=== PATIENT | male | born 1970 | race Caucasian/White ===

== ENCOUNTER 2016-08-05 16:17 | Emergency (ER) | payer MEDICAID ==
[2016-08-05] MEDS ORDERED: ASPIRIN 81 MG TABLET, CHEWABLE PO ONE (16:42)
[2016-08-05] MEDS ORDERED: NORMAL SALINE 1000 ML 1,000 ML IV ONE (16:44)
--- NOTE | 2016-08-05 16:44 | ER Document Report ---
ED Medical Screen (RME) - General Chief Complaint: Chest Pain Stated Complaint: CONGESTED Mode of Arrival: Ambulatory Information source: Patient Notes: Patient presents complaining of cough and congestion for the past 2 days. Patient now complains of rapid heartbeat and chest pain. Patient states he felt like this when he was previously treated for a PE. Patient denies any fever. Patient states that he is not on any blood thinning medications as he has a PE filter in place. TRAVEL OUTSIDE OF THE [place] IN LAST 30 DAYS: No - Related Data Allergies/Adverse Reactions: tramadol Allergy (Mild, Verified 07/03/16 16:16) Nausea No Known Drug Allergies Allergy (Verified 10/19/13 10:42) Past Medical History - Past Medical History Cardiac Medical History: Reports: Hx Hypercholesterolemia, Hx Hypertension, Hx Pulmonary Embolism Denies: Hx Heart Attack Pulmonary Medical History: Reports: Hx Bronchitis Denies: Hx Asthma, Hx COPD, Hx Pneumonia, Hx Tuberculosis Neurological Medical History: Reports: Hx Migraine. Denies: Hx Seizures Endocrine Medical History: Denies: Hx Diabetes Mellitus Type 1, Hx Diabetes Mellitus Type 2 Renal/ Medical History: Reports: Hx Benign Prostatic Hyperplasia. Denies: Hx End Stage Renal Disease, Hx Kidney Stones GI Medical History: Reports: Hx Hiatal Hernia Musculoskeltal Medical History: Reports Hx Arthritis, Reports Hx Gout, Reports Hx Musculoskeletal Trauma Psychiatric Medical History: Reports: Hx Anxiety, Hx Bipolar Disorder, Hx Depression Denies: Hx Schizophrenia Traumatic Medical History: Reports: Hx Fractures - FX T4-T10, Hx Spine Fracture Past Surgical History: Reports: Hx Abdominal Surgery - hernia surgeries, Hx Kidney (Renal Surgery) - STENT PLACED IN URETER, Hx Orthopedic Surgery - , cervical fusions, back, Hx Umbilical Hernia - Immunizations Immunizations up to date: Yes Hx Diphtheria, Pertussis, Tetanus Vaccination: Yes Physical Exam - Vital signs Vitals: Temp Pulse Resp BP Pulse Ox 98.0 F 124 H 18 112/82 97 08/05/16 16:33 08/05/16 16:33 08/05/16 16:33 08/05/16 16:33 08/05/16 16:33 - Cardiovascular Rhythm: Tachycardia Heart sounds: S1 appreciated, S2 appreciated Course - Vital Signs Vital signs: Temp Pulse Resp BP Pulse Ox 98.0 F 124 H 18 112/82 97 08/05/16 16:33 08/05/16 16:33 08/05/16 16:33 08/05/16 16:33 08/05/16 16:33
--- NOTE | 2016-08-05 18:30 | ER Document Report ---
ED Respiratory Problem - General Chief Complaint: Chest Pain Stated Complaint: CONGESTED Mode of Arrival: Ambulatory Information source: Patient TRAVEL OUTSIDE OF THE [place] IN LAST 30 DAYS: No - HPI Patient complains to provider of: Cough, Short of breath Onset: Other - 7 DAYS Duration: Intermittent episodes Initiating Event: Other - no incident Quality of pain: Other - SORENESS Severity: Moderate Context: DVT, Other - Hx P.E. Short of Breath: Moderate Chest pain/discomfort: Center Cough: Productive - MINIMALLY Sputum amount: Scant Sputum color: Green Sputum consistency: Mucoid At home treatment: Bronchodilators Associated symptoms: Chills, Cough Notes: SOON BY PCP 5 d AGO, SAYS HE'S NO BETTER DESPITE BRONCHODILATORS, NOW FEELS THE SAME WHEN HE HAD P.E. - Related Data Allergies/Adverse Reactions: tramadol Allergy (Mild, Verified 07/03/16 16:16) Nausea No Known Drug Allergies Allergy (Verified 10/19/13 10:42) Past Medical History - General Information source: Patient - Social History Smoking Status: Never Smoker Cigarette use (# per day): No Chew tobacco use (# tins/day): No Frequency of alcohol use: Rare Drug Abuse: None Lives with: Family Family History: Arthritis, CAD, CVA, DM, Hyperlipidemia, Hypertension, Malignancy Patient has suicidal ideation: No Patient has homicidal ideation: No - Past Medical History Cardiac Medical History: Reports: Hx DVT, Hx Hypercholesterolemia, Hx Hypertension, Hx Pulmonary Embolism Denies: Hx Heart Attack Pulmonary Medical History: Reports: Hx Bronchitis Denies: Hx Asthma, Hx COPD, Hx Pneumonia, Hx Tuberculosis Neurological Medical History: Reports: Hx Migraine. Denies: Hx Seizures Endocrine Medical History: Denies: Hx Diabetes Mellitus Type 1, Hx Diabetes Mellitus Type 2 Renal/ Medical History: Reports: Hx Benign Prostatic Hyperplasia. Denies: Hx End Stage Renal Disease, Hx Kidney Stones GI Medical History: Reports: Hx Hiatal Hernia Musculoskeltal Medical History: Reports Hx Arthritis, Reports Hx Gout, Reports Hx Musculoskeletal Trauma Psychiatric Medical History: Reports: Hx Anxiety, Hx Bipolar Disorder, Hx Depression Denies: Hx Schizophrenia Traumatic Medical History: Reports: Hx Fractures - FX T4-T10, Hx Spine Fracture Past Surgical History: Reports: Hx Abdominal Surgery - hernia surgeries, Hx Kidney (Renal Surgery) - STENT PLACED IN URETER, Hx Orthopedic Surgery - , cervical fusions, back, Hx Umbilical Hernia, Hx Vascular Surgery - IVC FILTER - Immunizations Immunizations up to date: Yes Hx Diphtheria, Pertussis, Tetanus Vaccination: Yes Review of Systems - Review of Systems Constitutional: Chills EENT: No symptoms reported Cardiovascular: No symptoms reported Respiratory: See HPI Gastrointestinal: No symptoms reported Genitourinary: No symptoms reported Musculoskeletal: No symptoms reported Skin: No symptoms reported Neurological/Psychological: No symptoms reported Physical Exam - Vital signs Vitals: Temp Pulse Resp BP Pulse Ox 98 F 124 H 18 112/82 97 08/05/16 16:30 08/05/16 16:30 08/05/16 16:30 08/05/16 16:30 08/05/16 16:30 Interpretation: Tachycardic - General General appearance: Appears well, Alert In distress: None - HEENT Head: Normocephalic Eyes: Normal Conjunctiva: Normal Ears: Normal Nasal: Normal Mouth/Lips: Normal Mucous membranes: Normal Pharynx: Normal Neck: Normal - Respiratory Respiratory status: No respiratory distress Chest status: Nontender Breath sounds: Normal - Cardiovascular Rhythm: Regular, Tachycardia Heart sounds: Normal auscultation Murmur: No - Abdominal Inspection: Obese Bowel sounds: Normal - Extremities General upper extremity: Normal inspection General lower extremity: Normal inspection. No: Tender, Edema - Neurological Neuro grossly intact: Yes Cognition: Normal Orientation: AAOx4 - Psychological Associated symptoms: Normal affect, Normal mood - Skin Skin Temperature: Warm Skin Moisture: Dry Skin Color: Normal Skin Turgor: Elastic Course - Vital Signs Vital signs: Temp Pulse Resp BP Pulse Ox 98 F 124 H 24 H 124/90 H 96 08/05/16 18:00 08/05/16 18:00 08/05/16 19:31 08/05/16 19:31 08/05/16 19:31 - Laboratory Result Diagrams: 08/05/16 18:00 08/05/16 18:00 Laboratory results interpreted by me: 08/05/16 08/05/16 18:00 18:00 Eosinophils % 7.7 H APTT 39.1 H Discharge - Discharge Clinical Impression: Bronchitis, acute Qualifiers: Bronchitis organism: unspecified organism Qualified Code(s): J20.9 - Acute bronchitis, unspecified Condition: Stable Disposition: HOME, SELF-CARE Instructions: Bronchitis ([facility]), Inhaled Bronchodilators ([facility]), Corticosteroid Medication ([facility]) Additional Instructions: REST, DRINK PLENTY OF FLUIDS. TAKE PREDNISONE DIRECTED, BEGINNING TOMORROW. USE YOUR NEBULIZER MACHINE DIRECTED BY DR. GRIFFIN. TAKE ALL OTHER MEDS USUAL. FOLLOW UP WITH DR. GRIFFIN IF NOT IMPROVING IN 2-3 DAYS. RETURN TO E.R. IF PROBLEMS, ANY TIME. Prescriptions: Prednisone [Deltasone 10 mg Tablet] 10 mg PO ASDIR PRN #21 tablet PRN Reason:
[2016-08-05 18:31] LABS: ABSOLUTE EOSINOPHILS # (AUTO) 0.5 10^3/uL (0.0-0.6); ABSOLUTE LYMPHOCYTES (AUTO) 1.1 10^3/uL (0.5-4.7); ABSOLUTE MONOCYTES (AUTO) 0.6 10^3/uL (0.1-1.4); ABSOLUTE NEUT (AUTO) 4.2 10^3/uL (1.7-8.2); BASOPHILS % (AUTO) 0.7 % (0-2); EOSINOPHILS % (AUTO) 7.7 % (0-6); HEMATOCRIT 43.4 % (37.9-51.0); HEMOGLOBIN 14.8 g/dL (13.5-17.0); LYMPHOCYTES % (AUTO) 17.2 % (13-45); MEAN CORPUSCULAR HEMOGLOBIN 30.8 pg (27.0-33.4); MEAN CORPUSCULAR HGB CONC 34.2 g/dL (32.0-36.0); MEAN CORPUSCULAR VOLUME 90 fl (80-97); MONOCYTES % (AUTO) 9.8 % (3-13); RED BLOOD COUNT 4.82 10^6/uL (4.35-5.55); RED CELL DISTRIBUTION WIDTH 13.3 % (11.5-14.0); SEGMENTED NEUTROPHILS % (AUTO) 64.6 % (42-78); WHITE BLOOD COUNT 6.4 10^3/uL (4.0-10.5)
[2016-08-05] MEDS ORDERED: DIPHENHYDRAMINE HCL 50 MG/ML VIAL IV ONE (18:33)
[2016-08-05 18:37] LABS: PROTHROMBIN TIME 12.2 SEC (11.4-15.4)
[2016-08-05 18:38] LABS: PARTIAL THROMBOPLASTIN TIME 39.1 SEC (23.5-35.8)
[2016-08-05 18:48] LABS: ALANINE AMINOTRANSFERASE 42 U/L (21-72); ALKALINE PHOSPHATASE 99 U/L (38-126); ANION GAP 11 (5-19); ASPARTATE AMINO TRANSFERASE 35 U/L (17-59); BILIRUBIN,TOTAL 0.6 mg/dL (0.2-1.3); BLOOD UREA NITROGEN 14 mg/dL (7-20); CALCIUM 9.6 mg/dL (8.4-10.2); CARBON DIOXIDE 29 mmol/L (22-30); CHLORIDE 104 mmol/L (98-107); CREATINE KINASE 118 U/L (55-170); CREATININE RESULT 0.97 mg/dL (0.52-1.25); GLUCOSE 91 mg/dL (75-110); LIPASE 64.6 U/L (23-300); MAGNESIUM 1.9 mg/dL (1.6-2.3); POTASSIUM 4.5 mmol/L (3.6-5.0); SODIUM 143.7 mmol/L (137-145); TOTAL PROTEIN 7.3 g/dL (6.3-8.2)
[2016-08-05 18:58] LABS: CREATINE KINASE MB 0.64 ng/mL (<4.55)
[2016-08-05 19:01] LABS: TROPONIN I < 0.012 ng/mL
[2016-08-05 19:43] LABS: APPEARANCE,URINE CLEAR; BILIRUBIN,URINE NEGATIVE (NEGATIVE); GLUCOSE, URINE NEGATIVE (NEGATIVE); KETONES,URINE NEGATIVE (NEGATIVE); LEUKOCYTE ESTERASE,URINE NEGATIVE (NEGATIVE); NITRITE,URINE NEGATIVE (NEGATIVE); PROTEIN,URINE NEGATIVE (NEGATIVE); URINE SPECIFIC GRAVITY 1.027; UROBILINOGEN,URINE NEGATIVE mg/dL (<2.0)
[2016-08-05 19:49] LABS: URINE BARBITURATES SCREEN UNCONFIRMED POSITIVE; URINE METHADONE SCREEN NEGATIVE; URINE PHENCYCLIDINE SCREEN NEGATIVE
[2016-08-05] MEDS ORDERED: PREDNISONE 20 MG TABLET PO ONE (21:10)
--- NOTE | 2016-08-05 21:14 | EKG REPORT ---
SEVERITY:- OTHERWISE NORMAL ECG - SINUS TACHYCARDIA : Confirmed by: Juanpablo De Guzman MD 05-Aug-2016 21:13:58
[2016-08-05 21:16] VITALS: BP 107/67
== END 2016-08-05 21:20 | disposition home or self-care (01) ==
LOC: ER 16:17
DX: J20.9 Acute bronchitis, unspecified (principal); R05 Cough; R06.02 Shortness of breath; R68.83 Chills (without fever); R07.9 Chest pain, unspecified; R00.0 Tachycardia, unspecified; I10 Essential (primary) hypertension; Z82.49 Family history of ischemic heart disease and other diseases of the circulatory system; Z86.711 Personal history of pulmonary embolism; Z86.718 Personal history of other venous thrombosis and embolism
CPT/HCPCS: 93005; 99284; 96361; 96374; 36415; 82553; 82550; 83690; 83735; 84443; 85025; 85610; 85730; 80053; 81001; 84484; 71020; 71275; 93010; G0479; J1200; J7512; J7030; 80307

== ENCOUNTER 2016-08-07 10:53 | Emergency (ER) | payer MEDICAID ==
--- NOTE | 2016-08-07 12:00 | ER Document Report ---
ED Medical Screen (RME) - General Chief Complaint: Back Pain Stated Complaint: BACK PAIN Time seen by provider: 12:00 Mode of Arrival: Wheelchair Information source: Patient TRAVEL OUTSIDE OF THE [place] IN LAST 30 DAYS: No - HPI Patient complains to provider of: BACK PAIN Onset: Other - CHRONIC Onset/Duration: Gone - CHRONIC Context: Patient states he went to see his pain management doctor this morning in [place]. Told his doctor that he had been intermittently having stool on himself for the last week. Pain management doctor wanted to send him by ambulance to [facility] to have an MRI on his back. Patient declined. Signed an AMA and drove himself to [place]. Came to [facility] to be evaluated. Denies new injury. Denies urinating on himself, but states he is having difficulty voiding. Quality of pain: Sharp Severity: Severe Pain Level: 5 Exacerbated by: Movement Relieved by: Denies Similar symptoms previously: Yes Recently seen / treated by doctor: Yes - Related Data Smoking: Non-smoker Frequency of alcohol use: None Drug Abuse: None Pertinent History: CHRONIC BACK PAIN Allergies/Adverse Reactions: tramadol Allergy (Mild, Verified 07/03/16 16:16) Nausea No Known Drug Allergies Allergy (Verified 10/19/13 10:42) Past Medical History - Social History Chew tobacco use (# tins/day): No Frequency of alcohol use: None Drug Abuse: None - Past Medical History Cardiac Medical History: Reports: Hx DVT, Hx Hypercholesterolemia, Hx Hypertension, Hx Pulmonary Embolism Denies: Hx Heart Attack Pulmonary Medical History: Reports: Hx Bronchitis Denies: Hx Asthma, Hx COPD, Hx Pneumonia, Hx Tuberculosis Neurological Medical History: Reports: Hx Migraine. Denies: Hx Seizures Endocrine Medical History: Denies: Hx Diabetes Mellitus Type 1, Hx Diabetes Mellitus Type 2 Renal/ Medical History: Reports: Hx Benign Prostatic Hyperplasia. Denies: Hx End Stage Renal Disease, Hx Kidney Stones GI Medical History: Reports: Hx Hiatal Hernia Musculoskeltal Medical History: Reports Hx Arthritis, Reports Hx Gout, Reports Hx Musculoskeletal Trauma Psychiatric Medical History: Reports: Hx Anxiety, Hx Bipolar Disorder, Hx Depression Denies: Hx Schizophrenia Traumatic Medical History: Reports: Hx Fractures - FX T4-T10, Hx Spine Fracture Past Surgical History: Reports: Hx Abdominal Surgery - hernia surgeries, Hx Kidney (Renal Surgery) - STENT PLACED IN URETER, Hx Orthopedic Surgery - , cervical fusions, back, Hx Umbilical Hernia, Hx Vascular Surgery - IVC FILTER - Immunizations Immunizations up to date: Yes Hx Diphtheria, Pertussis, Tetanus Vaccination: Yes Physical Exam - Vital signs Vitals: Temp Pulse Resp BP Pulse Ox 98.2 F 87 18 126/82 H 98 08/07/16 11:07 08/07/16 11:07 08/07/16 11:07 08/07/16 11:07 08/07/16 11:07 Course - Vital Signs Vital signs: Temp Pulse Resp BP Pulse Ox 98.2 F 87 18 126/82 H 98 08/07/16 11:07 08/07/16 11:07 08/07/16 11:07 08/07/16 11:07 08/07/16 11:07
--- NOTE | 2016-08-07 14:56 | ER Document Report ---
ED General - General Chief Complaint: Back Pain Stated Complaint: BACK PAIN Mode of Arrival: Wheelchair Notes: This is a 46-year-old male with history of chronic back pain with multiple surgeries and procedures, and chronic pain management who presents after being seen by his pain management doctor. Patient just had a lumbar spine MRI performed here on but states his issues are worsening since then. He states he's had 2 or 3 episodes of fecal incontinence. He states he did not feel anything coming and then all of a sudden had stooled on himself. He denies urinary incontinence or retention but does state that he has to strain to start his flow of urine. He states sometimes he is able to urinate a small volume and sometimes a large volume, it varies. No fever. His pain management doctor and wants to go to the ER in [place] but patient drove himself here because he wants to return closer to his home. He ambulated with his cane. TRAVEL OUTSIDE OF THE [place] IN LAST 30 DAYS: No - Related Data Allergies/Adverse Reactions: tramadol Allergy (Mild, Verified 07/03/16 16:16) Nausea No Known Drug Allergies Allergy (Verified 10/19/13 10:42) Past Medical History - General Information source: Patient - Social History Smoking Status: Never Smoker Chew tobacco use (# tins/day): No Frequency of alcohol use: None Drug Abuse: None Family History: Arthritis, CAD, CVA, DM, Hyperlipidemia, Hypertension, Malignancy Patient has suicidal ideation: No Patient has homicidal ideation: No - Past Medical History Cardiac Medical History: Reports: Hx DVT, Hx Hypercholesterolemia, Hx Hypertension, Hx Pulmonary Embolism Denies: Hx Heart Attack Pulmonary Medical History: Reports: Hx Bronchitis Denies: Hx Asthma, Hx COPD, Hx Pneumonia, Hx Tuberculosis Neurological Medical History: Reports: Hx Migraine. Denies: Hx Seizures Endocrine Medical History: Denies: Hx Diabetes Mellitus Type 1, Hx Diabetes Mellitus Type 2 Renal/ Medical History: Reports: Hx Benign Prostatic Hyperplasia. Denies: Hx End Stage Renal Disease, Hx Kidney Stones GI Medical History: Reports: Hx Hiatal Hernia Musculoskeltal Medical History: Reports Hx Arthritis, Reports Hx Gout, Reports Hx Musculoskeletal Trauma Psychiatric Medical History: Reports: Hx Anxiety, Hx Bipolar Disorder, Hx Depression Denies: Hx Schizophrenia Traumatic Medical History: Reports: Hx Fractures - FX T4-T10, Hx Spine Fracture Past Surgical History: Reports: Hx Abdominal Surgery - hernia surgeries, Hx Kidney (Renal Surgery) - STENT PLACED IN URETER, Hx Orthopedic Surgery - , cervical fusions, back, Hx Umbilical Hernia, Hx Vascular Surgery - IVC FILTER - Immunizations Immunizations up to date: Yes Hx Diphtheria, Pertussis, Tetanus Vaccination: Yes Review of Systems - Review of Systems Constitutional: denies: Fever EENT: denies: Difficulty swallowing Cardiovascular: denies: Chest pain, Syncope Respiratory: denies: Short of breath Gastrointestinal: denies: Abdominal pain, Vomiting Genitourinary: denies: Flank pain Skin: denies: Rash Neurological/Psychological: denies: Paralysis Physical Exam - Vital signs Vitals: Temp Pulse Resp BP Pulse Ox 98.2 F 87 18 126/82 H 98 08/07/16 11:07 08/07/16 11:07 08/07/16 11:07 08/07/16 11:07 08/07/16 11:07 - General General appearance: Appears well In distress: None Notes: Appears very comfortable, lying on his side, no distress - HEENT Head: Normocephalic Eyes: Normal Pupils: PERRL - Respiratory Respiratory status: No respiratory distress Breath sounds: Normal Chest palpation: Normal - Cardiovascular Rhythm: Regular - Abdominal Inspection: Obese Tenderness: Nontender - Rectal Tenderness: No - normal sensation Hemorrhoids: None Notes: Normal sphincter tone - Back Back: No: Vertebra tenderness - Extremities General upper extremity: Normal inspection General lower extremity: Normal inspection - Neurological Neuro grossly intact: Yes Cerebellar coordination: Other - ambulating in ER to restroom Motor strength normal: LUE, RUE Sensory: Normal - Psychological Associated symptoms: Normal affect - Skin Skin Temperature: Warm Skin Moisture: Dry Skin Color: Normal Course - Re-evaluation Re-evalutation: 08/07/16 14:55 The patient just had an MRI less than 1 week ago. There is no objective evidence of cauda equina or acute spinal cord compression. He does report episodes of fecal incontinence however has excellent sphincter tone and normal sensation in the perianal area. Patient has been ambulating and driving. He is stable for discharge. He's been encouraged to call his neurosurgeon immediately to arrange follow-up appointment. - Vital Signs Vital signs: Temp Pulse Resp BP Pulse Ox 98.2 F 87 18 126/82 H 98 08/07/16 11:07 08/07/16 11:07 08/07/16 13:24 08/07/16 11:07 08/07/16 11:07 Discharge - Discharge Clinical Impression: Chronic back pain Qualifiers: Back pain location: low back pain Back pain laterality: unspecified Sciatica presence: unspecified whether sciatica present Qualified Code(s): M54.5 - Low back pain; G89.29 - Other chronic pain Condition: Stable Disposition: HOME, SELF-CARE Additional Instructions: call your neurosurgeon today to arrange follow up as soon as possible. Referrals: EFRAIN GRIFFIN MD [Primary Care Provider] - Follow up as needed
[2016-08-07 15:09] VITALS: BP 118/71
== END 2016-08-07 15:22 | disposition home or self-care (01) ==
LOC: ER 10:53
DX: M54.5 Low back pain (principal); M54.9 Dorsalgia, unspecified; G89.29 Other chronic pain; R15.9 Full incontinence of feces
CPT/HCPCS: 99283

== ENCOUNTER → 2016-08-22 | Outpatient (CLI) | payer MEDICAID | LOC: RAD 11:17 | PROVIDERS: ATTEND Internal Medicine | DX: M54.12 Radiculopathy, cervical region (principal) | CPT/HCPCS: 72050 ==

== ENCOUNTER 2016-09-24 06:54 | Emergency (ER) | payer MEDICAID ==
[2016-09-24 09:47] LABS: HEMATOCRIT 36.3 % (37.9-51.0); HEMOGLOBIN 12.2 g/dL (13.5-17.0); HGB HCT DIFFERENCE 0.3; MEAN CORPUSCULAR HEMOGLOBIN 30.1 pg (27.0-33.4); MEAN CORPUSCULAR HGB CONC 33.6 g/dL (32.0-36.0); MEAN CORPUSCULAR VOLUME 90 fl (80-97); RED BLOOD COUNT 4.05 10^6/uL (4.35-5.55); RED CELL DISTRIBUTION WIDTH 13.2 % (11.5-14.0); WHITE BLOOD COUNT 5.9 10^3/uL (4.0-10.5)
[2016-09-24 09:58] LABS: AMORPHOUS SEDIMENT,URINE TRACE /HPF; APPEARANCE,URINE SLIGHTLY-CLOUDY; BILIRUBIN,URINE NEGATIVE (NEGATIVE); GLUCOSE, URINE NEGATIVE (NEGATIVE); KETONES,URINE NEGATIVE (NEGATIVE); LEUKOCYTE ESTERASE,URINE NEGATIVE (NEGATIVE); NITRITE,URINE NEGATIVE (NEGATIVE); PROTEIN,URINE NEGATIVE (NEGATIVE); URINE SPECIFIC GRAVITY 1.014; UROBILINOGEN,URINE NEGATIVE mg/dL (<2.0)
[2016-09-24 10:10] LABS: ALANINE AMINOTRANSFERASE 65 U/L (21-72); ALKALINE PHOSPHATASE 128 U/L (38-126); ANION GAP 9 (5-19); ASPARTATE AMINO TRANSFERASE 45 U/L (17-59); BILIRUBIN,TOTAL 0.4 mg/dL (0.2-1.3); BLOOD UREA NITROGEN 10 mg/dL (7-20); CALCIUM 9.5 mg/dL (8.4-10.2); CARBON DIOXIDE 32 mmol/L (22-30); CHLORIDE 99 mmol/L (98-107); CREATINE KINASE 197 U/L (55-170); CREATININE RESULT 1.03 mg/dL (0.52-1.25); GLUCOSE 102 mg/dL (75-110); POTASSIUM 5.1 mmol/L (3.6-5.0); TOTAL PROTEIN 7.1 g/dL (6.3-8.2)
[2016-09-24 10:18] LABS: BAND NEUTROPHILS % (MANUAL) 1 % (3-5); BASOPHILS % (MANUAL) 0 % (0-2); EOSINOPHILS % (MANUAL) 2 % (0-6); HYPOCHROMASIA SLIGHT; LYMPHOCYTES % (MANUAL) 18 % (13-45); POLYCHROMASIA 1+; TOTAL CELLS COUNTED 100; TOXIC GRANULATION SLIGHT
[2016-09-24 10:20] LABS: CREATINE KINASE MB 2.69 ng/mL (<4.55)
[2016-09-24 10:22] LABS: TROPONIN I < 0.012 ng/mL
--- NOTE | 2016-09-24 11:00 | ER Document Report ---
ED General - General Chief Complaint: Fall Injury Stated Complaint: FALL,SYNCOPAL EPISODE Time seen by provider: 10:56 Mode of Arrival: Medic Information source: Patient, Relative Notes: 46-year-old male passed out while walking the bathroom this morning. Patient reports he had lumbar laminectomy 2 weeks ago. He reports he has oxycodone and Flexeril prescribed and took his last dose at midnight. He reports he's had no new or different dosages or other medicines. He says he was in bed and sat on the edge of bed for a few seconds then started up again walking out of the bathroom and felt woozy and then says he fell landing on his left knee striking his face and left shoulder on toilet. The patient denies a true loss of consciousness and says he remembers his calling to him while he was on the floor. says that she heard a thump and found him on the floor she says he did not speak to her but did make some effort to stand and then collapsed the second time again metanephrine to get up and collapsed the third time. She then called 911 and while waiting and was personnel the patient was able stand up and a late to the bed on his own. He was also able ambulate to the embolus. There was no witnessed seizure-like activity. The patient reports a prior history of syncopal episodes like this. He reports he's been in his usual state of health otherwise recently. He has no complaints now except for pain and anterior left knee and pain to his forehead and nose where he suffered some superficial lacerations. reports his behavior is abnormal now because he is not complaining as much as he ordinarily would. Physical Exam: General: Alert, appears well. HEENT: Normocephalic. 3 cm superficial laceration of the midforehead. 1 cm superficial laceration right nose. No active bleeding and edges are well approximated. PERRLA. Extraocular movements intact. Tympanic membranes and canals clear. No otorhinorrhea. Oropharynx clear. Bite normal Neck: Supple. Non-tender. Good range of motion without discomfort no bony deformities palpated Respiratory: No respiratory distress. Clear and equal breath sounds bilaterally. Cardiovascular: Regular rate and rhythm. Abdominal: Normal Inspection. Soft, non-tender. No distension. Normal Bowel Sounds. Back mild tenderness in the lower lumbar region. Zippers in place with no surrounding erythema or induration. No signs or symptoms of infection. No deformity or step off. Extremities: Moves all four extremities. Upper extremities: Normal inspection. Non-tender. Normal color. Normal ROM. Normal temperature. Lower extremities: Left knee has a 3 x 3 cm abrasion over the patella. He demonstrates good range of motion all joints but does have discomfort in the anterior left knee with flexion. No Homans sign bilaterally. 2+ pulses all extremities Neurological: Speech clear. Mentation normal. Blanket Inspector strength 5 out of 5 equal both upper extremities. Motor function 5 out of 5 equal both lower extremities. No cranial nerve deficits appreciated Psychological: Normal affect. Normal Mood. Skin: Warm. Dry. Normal color. TRAVEL OUTSIDE OF THE [place] IN LAST 30 DAYS: No - Related Data Allergies/Adverse Reactions: tramadol Allergy (Mild, Verified 07/03/16 16:16) Nausea No Known Drug Allergies Allergy (Verified 10/19/13 10:42) Past Medical History - Social History Smoking Status: Never Smoker Family History: Arthritis, CAD, CVA, DM, Hyperlipidemia, Hypertension, Malignancy - Past Medical History Cardiac Medical History: Reports: Hx DVT, Hx Hypercholesterolemia, Hx Hypertension, Hx Pulmonary Embolism Denies: Hx Heart Attack Pulmonary Medical History: Reports: Hx Bronchitis Denies: Hx Asthma, Hx COPD, Hx Pneumonia, Hx Tuberculosis Neurological Medical History: Reports: Hx Migraine. Denies: Hx Seizures Endocrine Medical History: Denies: Hx Diabetes Mellitus Type 1, Hx Diabetes Mellitus Type 2 Renal/ Medical History: Reports: Hx Benign Prostatic Hyperplasia. Denies: Hx End Stage Renal Disease, Hx Kidney Stones GI Medical History: Reports: Hx Hiatal Hernia Musculoskeltal Medical History: Reports Hx Arthritis, Reports Hx Gout, Reports Hx Musculoskeletal Trauma Psychiatric Medical History: Reports: Hx Anxiety, Hx Bipolar Disorder, Hx Depression Denies: Hx Schizophrenia Traumatic Medical History: Reports: Hx Fractures - FX T4-T10, Hx Spine Fracture Past Surgical History: Reports: Hx Abdominal Surgery - hernia surgeries, Hx Kidney (Renal Surgery) - STENT PLACED IN URETER, Hx Orthopedic Surgery - cervical fusions, back, Hx Umbilical Hernia, Hx Vascular Surgery - IVC FILTER - Immunizations Immunizations up to date: Yes Hx Diphtheria, Pertussis, Tetanus Vaccination: Yes Review of Systems - Review of Systems Constitutional: denies: Chills, Fever EENT: denies: Ear pain, Throat pain Cardiovascular: denies: Chest pain, Palpitations Respiratory: denies: Cough, Short of breath Gastrointestinal: denies: Abdominal pain, Diarrhea, Nausea, Vomiting, Blood in vomit, Black stools, Rectal bleeding Genitourinary: denies: Burning, Dysuria Musculoskeletal: Back pain, Joint pain Skin: See HPI Neurological/Psychological: See HPI Physical Exam - Vital signs Vitals: Temp Pulse Resp BP Pulse Ox 98.7 F 94 18 132/74 H 96 09/24/16 07:15 09/24/16 07:15 09/24/16 07:15 09/24/16 07:15 09/24/16 07:15 Course - Re-evaluation Re-evalutation: 09/24/16 12:01 Patient continues to plan about mild discomfort in his left knee as well as postsurgical pain in his low back is had no sick blood soaked here. Presentation is most consistent with orthostasis but the patient is a mandatory at the scene and this appears to have resolved on its own. - Vital Signs Vital signs: Temp Pulse Resp BP Pulse Ox 98.7 F 93 27 H 123/83 98 09/24/16 07:15 09/24/16 08:18 09/24/16 09:01 09/24/16 09:01 09/24/16 09:01 - Laboratory Result Diagrams: 09/24/16 09:10 09/24/16 09:10 Laboratory results interpreted by me: 09/24/16 09/24/16 09:10 09:10 RBC 4.05 L Hgb 12.2 L Hct 36.3 L Band Neutrophils % 1 L Metamyelocytes % 1 H Potassium 5.1 H Carbon Dioxide 32 H Alkaline Phosphatase 128 H Creatine Kinase 197 H - Diagnostic Test Radiology reviewed: Image reviewed, Reports reviewed - EKG Interpretation by Me Additional EKG results interpreted by me: 09/24/16 11:02 EKG reviewed by myself shows sinus rhythm at 95 no acute changes no significant change compared to 08/05/2016 Discharge - Discharge Clinical Impression: Syncope Qualifiers: Syncope type: unspecified Qualified Code(s): R55 - Syncope and collapse Condition: Stable Disposition: HOME, SELF-CARE Additional Instructions: Syncopal Episode Syncope (fainting or near-fainting) can occur from many different health problems. Or it can be a simple fainting spell requiring no treatment. It is safe for you to go home, but further evaluation will likely be necessary. Your work-up may include tests for internal bleeding, heart disease, medication problems, or near-strokes. Tests are not always required, however, depending on the nature of your problem. The warning signs of an impending faint include: dizziness, lightheadedness , nausea, hot flashes, tingling, and weakness. If this happens, lay down and put your feet up, then wait until all of these symptoms have passed before standing up again. If these episodes become recurrent, or if you develop chest pain, heart palpitations, mental confusion, blurred vision, or headache, then you should call the physician, or go to the emergency room. Referrals: EFRAIN GRIFFIN MD [Primary Care Provider] - Follow up in 1 week
[2016-09-24] MEDS ORDERED: MORPHINE SULFATE 10 MG/ML INJ IV ONE (11:23)
[2016-09-24 12:44] VITALS: BP 104/66
--- NOTE | 2016-09-24 20:05 | EKG REPORT ---
SEVERITY:- NORMAL ECG - SINUS RHYTHM : Confirmed by: Letitia Chacon 24-Sep-2016 20:04:24
== END 2016-09-24 13:00 | disposition home or self-care (01) ==
LOC: ER 06:54
DX: R55 Syncope and collapse (principal); E78.00 Pure hypercholesterolemia, unspecified; I10 Essential (primary) hypertension; Z86.718 Personal history of other venous thrombosis and embolism; Z88.6 Allergy status to analgesic agent; Z98.1 Arthrodesis status
CPT/HCPCS: 93005; 99284; 96374; 36415; 82553; 82550; 85025; 80053; 81001; 84484; 73560; 70450; 93010; J2270

== ENCOUNTER → 2016-10-11 | Outpatient (CLI) | payer MEDICAID | LOC: RAD 13:15 | PROVIDERS: ATTEND Internal Medicine | DX: R31.9 Hematuria, unspecified (principal); N20.0 Calculus of kidney | CPT/HCPCS: 74176 ==

== ENCOUNTER → 2016-10-25 | Outpatient (CLI) | payer MEDICAID ==
--- NOTE | 2016-10-25 14:05 | EEG PRO FEE REPORT ---
EEG INTERPRETATION PATIENT NAME: MARITA GALICIA ROOM#: ORDER#: [id number] DATE OF STUDY: 10/25/2016 : 1970 REFERRING MD: EFRAIN GRIFFIN M.D. DIAGNOSIS: Epilepsy REPORT The background activity consists mostly of 6-7 Hz theta with superimposed motion artifact frequently seen; other times it's 7-8 Hz mixed theta and alpha. No clear further focal slowing, amplitude asymmetry, or epileptiform discharges are noted. IMPRESSION Normal EEG with excess motion artifact INTERPRETING PHYSICIAN: LUIS WOODS M.D. /: MTEFFT TT: 1358 ID: [id number] /: [id number] TD: [id number] JOB: [id number] cc:Kuldeep LEDBETTER M.D. >
== END ==
LOC: NEURO 08:06
PROVIDERS: ATTEND Internal Medicine
DX: G40.909 Epilepsy, unspecified, not intractable, without status epilepticus (principal)
CPT/HCPCS: 95819

== ENCOUNTER → 2017-01-08 | Outpatient (CLI) | payer MEDICAID | LOC: RAD 13:16 | PROVIDERS: ATTEND Neurological Surgery | DX: Z53.8 Procedure and treatment not carried out for other reasons (principal) | CPT/HCPCS: 82565 ==

== ENCOUNTER 2017-07-03 09:54 | Day surgery (SDC) | payer MEDICAID ==
[2017-07-03] MEDS ORDERED: MIDAZOLAM 2 MG/2 ML INJ ONE (11:59)
[2017-07-03] MEDS ORDERED: FENTANYL CITRATE INJ/PF 100 MCG/2 ML AMPUL ONE (11:59)
[2017-07-03] MEDS ORDERED: PROPOFOL INJ 200 MG/20 ML VIAL IV ONE (12:00)
--- NOTE | 2017-07-03 13:18 | SURGICARE OPERATIVE REPORT E ---
[facility] Operative Report NAME: MARITA GALICIA AGE: 47Y DATE OF SURGERY: 07/03/2017 ROOM: PREOPERATIVE DIAGNOSIS: Skin lesion of the medial plantar aspect of the right heel. POSTOPERATIVE DIAGNOSIS: Skin lesion of the medial plantar aspect of the right heel. PROCEDURE: Excision of skin lesion on the medial plantar right heel. OPERATING SURGEON: FILEMON MILES DPM PATIENT OBSERVER: ASHER RASHID DPM DESCRIPTION OF PROCEDURE: On 07/03/2017, the patient was admitted to [facility] with complaint of painful right foot. The patient was taken to the operating room where following induction of intravenous sedation and regional local anesthesia, the patient's right foot and leg were prepped and draped in the usual sterile manner. Attention was then directed to the patient's medial plantar aspect of the right heel where there was noted to be an approximately 0.6 cm oval lesion. At that time, utilizing a 15-blade, 2 converging semi-elliptical incisions were placed adjacent to the lesion, which was then excised from the wound en toto. The skin margins were examined, appeared to be free of any remaining abnormal-appearing tissue. The skin margins were undermined. The area was flushed with copious amounts of sterile antibiotic solution and then closed with simple interrupted suture of 4-0 nylon. Sterile dressing consisting of Saleem silk, 4 x 4, Reny, Kerlix, and Coflex was applied to the patient's right foot. The patient appeared to tolerate surgery and anesthesia well and was taken to recovery room where further monitored by anesthesia department and will be discharged from [facility] later today. DICTATING PHYSICIAN: FILEMON MILES DPM [id number] PHY#: [id number] ID: [id number] JOB#: [id number] ACCT: [id number] cc:FILEMON MILES DPM >
[2017-07-03] MEDS ORDERED: LIDOCAINE 1%/EPINEPHRINE INJ 20 ML VIAL ONE (13:35)
[2017-07-03] MEDS ORDERED: NORMAL SALINE INJ/PF 0.9% 10 ML SDV ONE (14:39)
[2017-07-03] MEDS ORDERED: BACITRACIN INJ 50,000 UNIT VIAL ONE (14:39)
[2017-07-03] MEDS ORDERED: POLYMYXIN B SULFATE INJ 500000 UNIT VIAL ONE (14:39)
== END 2017-07-03 14:10 | disposition home or self-care (01) ==
LOC: SC 09:54
PROVIDERS: ATTEND Preventive Medicine Undersea and Hyperbaric Medicine
PROC: 0HBMXZZ Excision of Right Foot Skin, External Approach (ICD-10-PCS; principal; 2017-07-03 11:00)
DX: D23.71 Other benign neoplasm of skin of right lower limb, including hip (principal); M19.90 Unspecified osteoarthritis, unspecified site; G47.30 Sleep apnea, unspecified; E78.00 Pure hypercholesterolemia, unspecified; M10.9 Gout, unspecified; I10 Essential (primary) hypertension; F34.1 Dysthymic disorder; K21.9 Gastro-esophageal reflux disease without esophagitis; Z79.1 Long term (current) use of non-steroidal anti-inflammatories (NSAID); Z88.8 Allergy status to other drugs, medicaments and biological substances
CPT/HCPCS: 88305 ×2; 11421; J2250; J3490 ×4; J3010; J2704; 300

== ENCOUNTER → 2018-11-12 | Outpatient (CLI) | payer MEDICAID ==
--- NOTE | 2018-11-12 11:06 | RADIOLOGY REPORT (SQ) ---
EXAM DESCRIPTION: LUMBAR SPINE 2 VIEWS; C SP 4 OR 5 VIEWS COMPLETED DATE/TIME: 11/12/2018 10:35 am REASON FOR STUDY: LOW BACK PAIN; CERVICALGIA COMPARISON: See below. FINDINGS: Five view cervical spine: 2017 comparison. Normal alignment. C6-7 anterior instrumentati on, grossly intact. Above this, disc spaces are narrowed with associated osteophytes. There is also solid osseous fusion across the C5-6 disc. Noncritical bilateral lower cervical foraminal encroachm ent. No fracture or bone lesion. Soft tissues normal. Lung apices largely excluded. Two view lumbar spine: 2015 prior. Mild grade 1 listhesis L4-5. Previous L4 and L5 dorsal decompre ssions without instrumentation. IVC filter in place. Multilevel disc and facet disease without evid ence of fracture or bone lesion. TECHNICAL DOCUMENTATION: JOB ID: [id number] Reading location - IP/workstation name: [email or web address]
--- NOTE | 2018-11-12 11:06 | RADIOLOGY REPORT (SQ) ---
EXAM DESCRIPTION: LUMBAR SPINE 2 VIEWS; C SP 4 OR 5 VIEWS COMPLETED DATE/TIME: 11/12/2018 10:35 am REASON FOR STUDY: LOW BACK PAIN; CERVICALGIA COMPARISON: See below. FINDINGS: Five view cervical spine: 2017 comparison. Normal alignment. C6-7 anterior instrumentati on, grossly intact. Above this, disc spaces are narrowed with associated osteophytes. There is also solid osseous fusion across the C5-6 disc. Noncritical bilateral lower cervical foraminal encroachm ent. No fracture or bone lesion. Soft tissues normal. Lung apices largely excluded. Two view lumbar spine: 2015 prior. Mild grade 1 listhesis L4-5. Previous L4 and L5 dorsal decompre ssions without instrumentation. IVC filter in place. Multilevel disc and facet disease without evid ence of fracture or bone lesion. TECHNICAL DOCUMENTATION: JOB ID: [id number] Reading location - IP/workstation name: [email or web address]
== END ==
LOC: OD 10:09
PROVIDERS: ATTEND Internal Medicine
DX: M54.5 Low back pain (principal); M54.2 Cervicalgia
CPT/HCPCS: 72050; 72100

== ENCOUNTER → 2018-11-20 | Outpatient (CLI) | payer MEDICAID ==
--- NOTE | 2018-11-20 13:57 | RADIOLOGY REPORT (SQ) ---
EXAM DESCRIPTION: U/S ABDOMEN LTD W/DOPPLER COMPLETED DATE/TIME: 11/20/2018 1:39 pm REASON FOR STUDY: R11.10 VOMITING, UNSPECIFIED R11.10 VOMITING, UNSPECIFIED COMPARISON: None. TECHNIQUE: Dynamic and static grayscale images acquired of the abdomen and recorded on PACS. Additio nal selected color Doppler and spectral images recorded. LIMITATIONS: None. FINDINGS: PANCREAS: Poorly seen. LIVER: Some increased echogenicity. LIVER VASCULATURE: Normal directional flow of the main portal vein and hepatic veins. GALLBLADDER: No stones. Normal wall thickness. No pericholecystic fluid. ULTRASOUND-DETECTED HERNANDEZ'S SIGN: Negative. INTRAHEPATIC DUCTS AND COMMON DUCT: Common bile duct is not well seen. No intrahepatic ductal dilata tion is present. INFERIOR VENA CAVA: Not imaged. AORTA: No aneurysm. RIGHT KIDNEY: Normal size, 12.7 cm. Normal echogenicity. No solid or suspicious masses. No hydroneph rosis. No calcifications. PERITONEAL AND RIGHT PLEURAL SPACE: No ascites or effusions. OTHER: No other significant findings. IMPRESSION: Hepatic steatosis. TECHNICAL DOCUMENTATION: JOB ID: [id number] [employer]- All Rights Reserved Reading location - IP/workstation name: [email or web address]
== END ==
LOC: RAD 13:25
PROVIDERS: ATTEND Internal Medicine
DX: K76.0 Fatty (change of) liver, not elsewhere classified (principal); R11.10 Vomiting, unspecified
CPT/HCPCS: 76705; 93976

== ENCOUNTER 2019-05-21 16:05 | Observation (INO) | payer MEDICAID ==
[2019-05-21 17:10] LABS: ABSOLUTE EOSINOPHILS # (AUTO) 0.2 10^3/uL (0.0-0.6); ABSOLUTE LYMPHOCYTES (AUTO) 1.4 10^3/uL (0.5-4.7); ABSOLUTE MONOCYTES (AUTO) 0.5 10^3/uL (0.1-1.4); ABSOLUTE NEUT (AUTO) 3.6 10^3/uL (1.7-8.2); BASOPHILS % (AUTO) 0.8 % (0-2); HEMATOCRIT 45.8 % (37.9-51.0); HEMOGLOBIN 15.3 g/dL (13.5-17.0); LYMPHOCYTES % (AUTO) 24.2 % (13-45); MEAN CORPUSCULAR HEMOGLOBIN 28.7 pg (27.0-33.4); MEAN CORPUSCULAR HGB CONC 33.4 g/dL (32.0-36.0); MEAN CORPUSCULAR VOLUME 86 fl (80-97); MONOCYTES % (AUTO) 9.6 % (3-13); PLATELET COUNT 178 10^3/uL (150-450); RED BLOOD COUNT 5.34 10^6/uL (4.35-5.55); RED CELL DISTRIBUTION WIDTH 13.6 % (11.5-14.0); SEGMENTED NEUTROPHILS % (AUTO) 62.4 % (42-78); TOTAL CELLS COUNTED % (AUTO) 100 %; WHITE BLOOD COUNT 5.7 10^3/uL (4.0-10.5)
[2019-05-21 17:34] LABS: ALBUMIN 4.5 g/dL (3.5-5.0); ALKALINE PHOSPHATASE 89 U/L (38-126); AMYLASE 75 U/L (30-110); ANION GAP 10 (5-19); ASPARTATE AMINO TRANSFERASE 24 U/L (17-59); BILIRUBIN,DIRECT 0.2 mg/dL (0.0-0.4); BILIRUBIN,TOTAL 0.7 mg/dL (0.2-1.3); BLOOD UREA NITROGEN 14 mg/dL (7-20); CALCIUM 9.6 mg/dL (8.4-10.2); CARBON DIOXIDE 26 mmol/L (22-30); CHLORIDE 102 mmol/L (98-107); GLUCOSE 82 mg/dL (75-110); POTASSIUM 4.3 mmol/L (3.6-5.0); TOTAL PROTEIN 7.4 g/dL (6.3-8.2)
[2019-05-21] MEDS: HYDROMORPHONE HCL INJ/PF 2 MG/ML AMPULE IV PRN (18:33)
[2019-05-21] MEDS: NORMAL SALINE 1000 ML 1,000 ML IV PRN (18:34)
[2019-05-21 20:44] LABS: APPEARANCE,URINE CLEAR; BILIRUBIN,URINE NEGATIVE (NEGATIVE); COLOR,URINE YELLOW; GLUCOSE, URINE >=500 mg/dL (NEGATIVE); KETONES,URINE NEGATIVE (NEGATIVE); LEUKOCYTE ESTERASE,URINE NEGATIVE (NEGATIVE); NITRITE,URINE NEGATIVE (NEGATIVE); PROTEIN,URINE NEGATIVE (NEGATIVE); URINE SPECIFIC GRAVITY 1.027; UROBILINOGEN,URINE NEGATIVE mg/dL (<2.0)
[2019-05-21] MEDS ORDERED: INDOMETHACIN 50 MG PO PRN (20:52)
[2019-05-21] MEDS ORDERED: (PENDING PHARMACY ID) (Dapagliflozin Propanediol [Farxiga] 10 MG) PO SCH (21:00)
[2019-05-21] MEDS ORDERED: ATOMOXETINE HCL 40 MG PO SCH (21:00)
[2019-05-21] MEDS ORDERED: (PENDING PHARMACY ID) (Metformin Hcl [Metformin Hcl Er] 500 MG) PO SCH (21:00)
[2019-05-21] MEDS ORDERED: INDOMETHACIN 25 MG CAPSULE PO PRN (21:03)
--- NOTE | 2019-05-21 21:06 | PDOC H&P ---
History of Present Illness Admission Date/PCP: 05/21/19 16:05 EFRAIN GRIFFIN MD History of Present Illness: MARITA GALICIA is a 49 year old male, He came to the office for evaluation of persistent right lower quadrant abdominal pain, he was in the office last week for the same problem at the time it was assumed that he has a kidney stone, because he has a history of kidney stone, he was empirically treated for kidney stone with Flomax, antibiotic, analgesia I attempted to get outpatient CAT scan to confirm a kidney stone but Medicaid insurance declined to approve the procedure. He came toThe office today for evaluation of the same pain, he suggested may be he should be admitted to the hospital for evaluation. The initial comprehensive metabolic panel, hemogram came back negative. The CT scan of the abdomen and pelvis with IV contrast was obtained, it demonstrated the ve ntriculoperitoneal shunt overlying the appendix Past Medical History Cardiac Medical History: Reports: DVT, Hyperlipidema, Hypertension - NO CURRENT MEDS, Pulmonary Embolism Pulmonary Medical History: Reports: Bronchitis Neurological Medical History: Reports: Migraine Endocrine Medical History: Reports: Diabetes Mellitus Type 2, Obesity Musculoskeltal Medical History: Reports: Arthritis, Gout Psychiatric Medical History: Reports: Bipolar Disorder, Depression Past Surgical History Past Surgical History: Reports: Orthopedic Surgery - cervical fusions, back, Vascular Surgery - IVC FILTER Social History Smoking Status: Never Smoker Frequency of Alcohol Use: None Hx Recreational Drug Use: No Hx Prescription Drug Abuse: No Family History Family History: Arthritis, CAD, CVA, DM, Hyperlipidemia, Hypertension, Malignancy Parental Family History Reviewed: Yes Children Family History Reviewed: Yes Sibling(s) Family History Reviewed.: Yes Medication/Allergy Home Medications: Allopurinol [Zyloprim 300 mg Tablet] 300 mg PO DAILY 05/21/19 Atomoxetine HCl [Strattera] 40 mg PO DAILY 05/21/19 Atorvastatin Calcium [Lipitor 40 mg Tablet] 40 mg PO DAILY 05/21/19 Dapagliflozin Propanediol [Farxiga] 10 mg PO DAILY 05/21/19 Fluoxetine HCl [Prozac] 40 mg PO DAILY 05/21/19 Hydroxyzine Pamoate [Vistaril 50 mg Capsule] 100 mg PO Q8 MDD 300 MG 05/21/19 Indomethacin [Indocin 50 mg Capsule] 50 mg PO Q12HP PRN 05/21/19 Isosorbide Mononitrate [Imdur 30 mg Tablet.er] 30 mg PO DAILY 05/21/19 Levothyroxine Sodium [Synthroid 0.075 mg Tablet] 0.075 mg PO Q6AM 05/21/19 Meloxicam [Mobic] 15 mg PO DAILY 05/21/19 Metformin HCl [Metformin HCl ER] 500 mg PO BIDBS 05/21/19 Oxcarbazepine [Trileptal] 600 mg PO Q12 05/21/19 Prazosin HCl [Minipress] 1 mg PO QHS 05/21/19 Quetiapine Fumarate [Seroquel] 300 mg PO DAILY 05/21/19 Quetiapine Fumarate [Seroquel] 600 mg PO QHS 05/21/19 Semaglutide [Ozempic] 1 mg SQ TU@1000 05/21/19 Zolpidem Tartrate [Ambien 5 mg Tablet] 10 mg PO QHS 05/21/19 Oxycodone HCl [Oxycodone HCl 10 MG Tablet] 10 mg PO Q6H #20 tablet 05/22/19 Allergies/Adverse Reactions: tramadol Allergy (Mild, Verified 10/16/16 13:04) Nausea Review of Systems Constitutional: ABSENT: chills, fever(s), headache(s), weight gain, weight loss Eyes: ABSENT: visual disturbances Ears: ABSENT: hearing changes Cardiovascular: ABSENT: chest pain, dyspnea on exertion, edema, orthropnea, palpitations Respiratory: ABSENT: cough, hemoptysis Gastrointestinal: ABSENT: abdominal pain, constipation, diarrhea, hematemesis, hematochezia, nausea, vomiting Genitourinary: ABSENT: dysuria, hematuria Musculoskeletal: PRESENT: back pain. ABSENT: joint swelling Integumentary: ABSENT: rash, wounds Neurological: ABSENT: abnormal gait, abnormal speech, confusion, dizziness, focal weakness, syncope Psychiatric: ABSENT: anxiety, depression, homidical ideation, suicidal ideation Endocrine: ABSENT: cold intolerance, heat intolerance, menstrual abnormalities, polydipsia, polyuria Hematologic/Lymphatic: ABSENT: easy bleeding, easy bruising, lymphadenopathy Physical Exam Vital Signs: Temp Pulse Resp BP Pulse Ox 98.0 F 100 16 118/75 99 05/21/19 16:22 05/21/19 16:22 05/21/19 16:22 05/21/19 16:22 10/17/19 16:22 Intake & Output 05/20/19 05/21/19 05/22/19 06:59 06:59 06:59 Output Total 100 Balance -100 Weight 121.3 kg General appearance: PRESENT: no acute distress, well-developed, well-nourished Head exam: PRESENT: atraumatic, normocephalic Eye exam: PRESENT: conjunctiva pink, EOMI, PERRLA Ear exam: PRESENT: normal external ear exam Mouth exam: PRESENT: moist, tongue midline Neck exam: PRESENT: full ROM Respiratory exam: PRESENT: clear to auscultation bravo Cardiovascular exam: PRESENT: RRR, +S1, +S2 Pulses: PRESENT: normal dorsalis pedis pul, +2 pedal pulses bilateral Vascular exam: PRESENT: normal capillary refill GI/Abdominal exam: PRESENT: normal bowel sounds, soft Rectal exam: PRESENT: deferred Neurological exam: PRESENT: alert, awake, oriented to person, oriented to place, oriented to time, oriented to situation, CN II-XII grossly intact Psychiatric exam: PRESENT: appropriate affect, normal mood Skin exam: PRESENT: dry, intact, warm Results Laboratory Results: 05/21/19 16:58 05/21/19 16:58 05/21/19 05/21/19 05/21/19 16:58 16:58 20:00 WBC 5.7 RBC 5.34 Hgb 15.3 Hct 45.8 MCV 86 MCH 28.7 MCHC 33.4 RDW 13.6 Plt Count 178 Seg Neutrophils % 62.4 Sodium 138.3 Potassium 4.3 Chloride 102 Carbon Dioxide 26 Anion Gap 10 BUN 14 Creatinine 0.96 Est GFR ( Amer) > 60 Glucose 82 Calcium 9.6 Total Bilirubin 0.7 AST 24 Alkaline Phosphatase 89 Total Protein 7.4 Albumin 4.5 Amylase 75 Lipase 102.3 Urine Color YELLOW Urine Appearance CLEAR Urine pH 5.0 Ur Specific [place] 1.027 Urine Protein NEGATIVE Urine Glucose (UA) >=500 H Urine Ketones NEGATIVE Urine Blood NEGATIVE Urine Nitrite NEGATIVE Ur Leukocyte Esterase NEGATIVE Urine WBC (Auto) 0 Urine RBC (Auto) 2 Assessment & Plan - Diagnosis (1) Abdominal pain Qualifiers: Abdominal location: right lower quadrant Qualified Code(s): R10.31 - Right lower quadrant pain Is this a current diagnosis for this admission?: Yes Plan: Patient was admitted for the evaluation of abdominal pain predominantly in the right lower quadrant, the CAT scan of the abdomen and pelvis demonstrated the ventriculoperitoneal shunt overlying the appendix but there is no evidence of inflammation of the appendix there is no rupture (2) T2DM (type 2 diabetes mellitus) Qualifiers: Diabetes mellitus scientific research associate insulin use: without nursing home use Diabetes mellitus complication status: with neurologic complications Diabetes mellitus complication detail: with polyneuropathy Qualified Code(s): E11.42 - Type 2 diabetes mellitus with diabetic polyneuropathy Is this a current diagnosis for this admission?: Yes
--- NOTE | 2019-05-21 21:55 | RADIOLOGY REPORT (SQ) ---
EXAM DESCRIPTION: CLINICAL HISTORY: 49 years Male pain COMPARISON: CT from 10/11/2016. TECHNIQUE: Axial images with IV contrast. 100 mL Omnipaque 350. Sagittal coronal reconstruction. This exam was performed according to our departmental dose-optimization program, which includes automated exposure control, adjustment of the mA and/or kV according to patient size and/or use of iterative reconstruction technique.. FINDINGS: Lung bases without acute findings. Apparent ventriculoperitoneal shunt entering the upper abdomen right of the midline. Tip of the shunt is in the right pelvis. Suspected mild fatty liver. Borderline spleen size. Thin elongated gallbladder without acute findings. No evidence for biliary dilatation. Pancreas, aorta and particularly regions are unremarkable. IVC filter in good position. Right adrenal glands unremarkable. 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 Unchanged since 2017. Kidneys without acute findings. Single nonobstructing small stone in each kidney. Bowel loops and peritoneal cavity without obvious acute findings. Normal appendix. The shunt tube is in proximity to the appendix. There is no evidence for inflammatory changes. Post laminectomy changes in the lumbar spine. CT of the pelvis demonstrates unremarkable urinary bladder. Prostate not enlarged. Distal colon is unremarkable. No adenopathy or free fluid. IMPRESSION: 1. No acute bowel abnormality. Normal appendix. There is a shunt tube with the tip in the right pelvis. The shunt tract is adjacent to the appendix. No associated inflammatory changes. 2. Mild fatty liver. 3. Fatty benign left adrenal lesion unchanged since 2017. 4. Postsurgical changes in the lumbar spine. 5. Single small nonobstructing stone in each kidney. No acute renal abnormalities. 6. IVC filter in good position.
[2019-05-21] MEDS ORDERED: (PENDING PHARMACY ID) (Oxcarbazepine [Trileptal] 600 MG) PO SCH (22:00)
[2019-05-21] MEDS ORDERED: ZOLPIDEM TARTRATE 5 MG TABLET PO SCH (22:00)
[2019-05-21] MEDS ORDERED: ATORVASTATIN CALCIUM 40 MG TABLET PO SCH (22:00)
[2019-05-21] MEDS: ISOSORBIDE MONONITRATE 30 MG TAB.ER.24H PO SCH (23:05)
[2019-05-21] MEDS: ALLOPURINOL 300 MG TABLET PO SCH (23:05)
[2019-05-22] MEDS: METFORMIN HCL 500 MG TABLET PO SCH ×3 (00:11→11:59)
[2019-05-22] MEDS: HYDROXYZINE PAMOATE 50 MG CAPSULE PO SCH ×2 (00:12→05:59)
[2019-05-22] MEDS ORDERED: QUETIAPINE FUMARATE 100 MG TABLET PO ONE (00:15)
[2019-05-22] MEDS: HYDROMORPHONE HCL INJ/PF 2 MG/ML AMPULE IV PRN ×3 (00:25→12:00)
[2019-05-22] MEDS: OXCARBAZEPINE 150 MG TABLET PO SCH ×2 (00:26→09:40)
[2019-05-22] MEDS: NORMAL SALINE 1000 ML 1,000 ML IV PRN (06:00)
[2019-05-22] MEDS ORDERED: LEVOTHYROXINE SODIUM 0.075 MG TABLET PO SCH (06:00)
[2019-05-22] MEDS: ISOSORBIDE MONONITRATE 30 MG TAB.ER.24H PO SCH (09:40)
[2019-05-22] MEDS: ALLOPURINOL 300 MG TABLET PO SCH (09:40)
[2019-05-22] MEDS ORDERED: ENOXAPARIN SODIUM INJ 40 MG/0.4 ML DISP.SYRIN SUBCUT SCH (10:00)
[2019-05-22] MEDS ORDERED: DOXAZOSIN MESYLATE 1 MG TABLET PO SCH (10:00)
[2019-05-22] MEDS ORDERED: QUETIAPINE FUMARATE 100 MG TABLET PO SCH ×2 (10:00→22:00)
[2019-05-22] MEDS ORDERED: ONDANSETRON 4 MG TAB.RAPDIS ONE (12:24)
[2019-05-22 13:57] VITALS: BP 118/75
--- NOTE | 2019-05-22 19:15 | PDOC DISCHARGE SUMMARY ---
Impression - Admit/DC Date/PCP Admission Date/Primary Care Provider: 05/21/19 16:05 EFRAIN GRIFFIN MD Discharge Date: 05/22/19 - Discharge Diagnosis (1) Abdominal pain Is this a current diagnosis for this admission?: Yes (2) T2DM (type 2 diabetes mellitus) Is this a current diagnosis for this admission?: Yes - Additional Information Discharge Diet: As Tolerated, Cardiac, Diabetic Discharge Activity: Activity As Tolerated Referrals: EFRAIN GRIFFIN MD [Primary Care Provider] - 06/01/19 10:15 am Prescriptions: RX: Oxycodone HCl [Oxycodone HCl 10 MG Tablet] 10 mg PO Q6H #20 tablet Home Medications: RX: Allopurinol [Zyloprim 300 mg Tablet] 300 mg PO DAILY 05/21/19 RX: Atomoxetine HCl [Strattera] 40 mg PO DAILY 05/21/19 RX: Atorvastatin Calcium [Lipitor 40 mg Tablet] 40 mg PO DAILY 05/21/19 RX: Dapagliflozin Propanediol [Farxiga] 10 mg PO DAILY 05/21/19 RX: Fluoxetine HCl [Prozac] 40 mg PO DAILY 05/21/19 RX: Hydroxyzine Pamoate [Vistaril 50 mg Capsule] 100 mg PO Q8 MDD 300 MG 05/21/19 RX: Indomethacin [Indocin 50 mg Capsule] 50 mg PO Q12HP PRN 05/21/19 RX: Isosorbide Mononitrate [Imdur 30 mg Tablet.er] 30 mg PO DAILY 05/21/19 RX: Levothyroxine Sodium [Synthroid 0.075 mg Tablet] 0.075 mg PO Q6AM 05/21/19 RX: Meloxicam [Mobic] 15 mg PO DAILY 05/21/19 RX: Metformin HCl [Metformin HCl ER] 500 mg PO BIDBS 05/21/19 RX: Oxcarbazepine [Trileptal] 600 mg PO Q12 05/21/19 RX: Prazosin HCl [Minipress] 1 mg PO QHS 05/21/19 RX: Quetiapine Fumarate [Seroquel] 300 mg PO DAILY 05/21/19 RX: Quetiapine Fumarate [Seroquel] 600 mg PO QHS 05/21/19 RX: Semaglutide [Ozempic] 1 mg SQ TU@1000 05/21/19 RX: Zolpidem Tartrate [Ambien 5 mg Tablet] 10 mg PO QHS 05/21/19 RX: Oxycodone HCl [Oxycodone HCl 10 MG Tablet] 10 mg PO Q6H #20 tablet 05/22/19 History of Present Illiness History of Present Illness: MARITA GALICIA is a 49 year old male, He came to the office for evaluation of persistent right lower quadrant abdominal pain, he was in the office last week for the same problem at the time it was assumed that he has a kidney stone, because he has a history of kidney stone, he was empirically treated for kidney stone with Flomax, antibiotic, analgesia I attempted to get outpatient CAT scan to confirm a kidney stone but Medicaid insurance declined to approve the procedure. He came toThe office today for evaluation of the same pain, he suggested may be he should be admitted to the hospital for evaluation. The initial comprehensive metabolic panel, hemogram came back negative. The CT scan of the abdomen and pelvis with IV contrast was obtained, it demonstrated the ventriculoperitoneal shunt overlying the appendix Hospital Course Hospital Course: Patient was admitted for the evaluation of abdominal pain, the only significant finding was the ventriculoperitoneal shunt overlying the appendix but there is no evidence of inflammation. It was felt initially that he may have a kidney stone because he has a history of kidney stone but there is no evidence of kidney stone on the basis of the CAT scan findings and also the urinary finding did not demonstrate any microscopic hematuria.Patient was brought in for observation Physical Exam Vital Signs: Temp Pulse Resp BP Pulse Ox 97.4 F 84 18 118/75 99 05/22/19 13:48 05/22/19 13:48 05/22/19 13:48 05/22/19 13:48 05/22/19 13:48 Intake & Output 05/21/19 05/22/19 05/23/19 06:59 06:59 06:59 Intake Total 1442 340 Output Total 100 Balance 1342 340 Weight 123.5 kg General appearance: PRESENT: no acute distress, morbidly obese Eye exam: PRESENT: PERRLA Respiratory exam: PRESENT: clear to auscultation bravo Cardiovascular exam: PRESENT: +S1, +S2 GI/Abdominal exam: PRESENT: soft Neurological exam: PRESENT: alert, CN II-XII grossly intact Results Laboratory Results: WBC 5.7 10^3/uL (4.0-10.5) 05/21/19 16:58 RBC 5.34 10^6/uL (4.35-5.55) 05/21/19 16:58 Hgb 15.3 g/dL (13.5-17.0) 05/21/19 16:58 Hct 45.8 % (37.9-51.0) 05/21/19 16:58 MCV 86 fl (80-97) 05/21/19 16:58 MCH 28.7 pg (27.0-33.4) 05/21/19 16:58 MCHC 33.4 g/dL (32.0-36.0) 05/21/19 16:58 RDW 13.6 % (11.5-14.0) 05/21/19 16:58 Plt Count 178 10^3/uL (150-450) 05/21/19 16:58 Lymph % (Auto) 24.2 % (13-45) 05/21/19 16:58 [place] % (Auto) 9.6 % (3-13) 05/21/19 16:58 Eos % (Auto) 3.0 % (0-6) 05/21/19 16:58 Baso % (Auto) 0.8 % (0-2) 05/21/19 16:58 Absolute Neuts (auto) 3.6 10^3/uL (1.7-8.2) 05/21/19 16:58 Absolute Lymphs (auto) 1.4 10^3/uL (0.5-4.7) 05/21/19 16:58 Absolute Monos (auto) 0.5 10^3/uL (0.1-1.4) 05/21/19 16:58 Absolute Eos (auto) 0.2 10^3/uL (0.0-0.6) 05/21/19 16:58 Absolute Basos (auto) 0.0 10^3/uL (0.0-0.2) 05/21/19 16:58 Seg Neutrophils % 62.4 % (42-78) 05/21/19 16:58 Sodium 138.3 mmol/L (137-145) 05/21/19 16:58 Potassium 4.3 mmol/L (3.6-5.0) 05/21/19 16:58 Chloride 102 mmol/L (98-107) 05/21/19 16:58 Carbon Dioxide 26 mmol/L (22-30) 05/21/19 16:58 Anion Gap 10 (5-19) 05/21/19 16:58 BUN 14 mg/dL (7-20) 05/21/19 16:58 Creatinine 0.96 mg/dL (0.52-1.25) 05/21/19 16:58 Est GFR ( Amer) > 60 (>60) 05/21/19 16:58 Est GFR (MDRD) Non-Af > 60 (>60) 05/21/19 16:58 Glucose 82 mg/dL (75-110) 05/21/19 16:58 POC Glucose 106 mg/dL (70-110) 05/21/19 16:20 Calcium 9.6 mg/dL (8.4-10.2) 05/21/19 16:58 Total Bilirubin 0.7 mg/dL (0.2-1.3) 05/21/19 16:58 Direct Bilirubin 0.2 mg/dL (0.0-0.4) 05/21/19 16:58 Neonat Total Bilirubin Not Reportable 05/21/19 16:58 Neonat Direct Bilirubin Not Reportable 05/21/19 16:58 Neonat Indirect Bili Not Reportable 05/21/19 16:58 AST 24 U/L (17-59) 05/21/19 16:58 ALT 24 U/L (<50) 05/21/19 16:58 Alkaline Phosphatase 89 U/L (38-126) 05/21/19 16:58 Total Protein 7.4 g/dL (6.3-8.2) 05/21/19 16:58 Albumin 4.5 g/dL (3.5-5.0) 05/21/19 16:58 Amylase 75 U/L (30-110) 05/21/19 16:58 Lipase 102.3 U/L (23-300) 05/21/19 16:58 Urine Color YELLOW 05/21/19 20:00 Urine Appearance CLEAR 05/21/19 20:00 Urine pH 5.0 (5.0-9.0) 05/21/19 20:00 Ur Specific [place] 1.027 05/21/19 20:00 Urine Protein NEGATIVE mg/dL (NEGATIVE) 05/21/19 20:00 Urine Glucose (UA) >=500 mg/dL (NEGATIVE) H 05/21/19 20:00 Urine Ketones NEGATIVE mg/dL (NEGATIVE) 05/21/19 20:00 Urine Blood NEGATIVE (NEGATIVE) 05/21/19 20:00 Urine Nitrite NEGATIVE (NEGATIVE) 05/21/19 20:00 Urine Bilirubin NEGATIVE (NEGATIVE) 05/21/19 20:00 Urine Urobilinogen NEGATIVE mg/dL (<2.0) 05/21/19 20:00 Ur Leukocyte Esterase NEGATIVE (NEGATIVE) 05/21/19 20:00 Urine WBC (Auto) 0 /HPF 05/21/19 20:00 Urine RBC (Auto) 2 /HPF 05/21/19 20:00 Urine Bacteria (Auto) TRACE /HPF 05/21/19 20:00 Squamous Epi Cells Auto 2 /HPF 05/21/19 20:00 Urine Mucus (Auto) OCC /LPF 05/21/19 20:00 Urine Ascorbic Acid NEGATIVE (NEGATIVE) 05/21/19 20:00 Impressions: Abdomen/Pelvis CT 05/21/19 16:30 IMPRESSION: 1. No acute bowel abnormality. Normal appendix. There is a shunt tube with the tip in the right pelvis. The shunt tract is adjacent to the appendix. No associated inflammatory changes. 2. Mild fatty liver. 3. Fatty benign left adrenal lesion unchanged since 2017. 4. Postsurgical changes in the lumbar spine. 5. Single small nonobstructing stone in each kidney. No acute renal abnormalities. 6. IVC filter in good position. Stroke Is this a Stroke Patient?: No Acute Heart Failure - Is this a Heart Failure Patient?: No
[2019-05-22] MEDS ORDERED: FLUOXETINE HCL 20 MG CAPSULE PO SCH (21:30)
[2019-05-26] MEDS ORDERED: (PENDING PHARMACY ID) (Semaglutide [Ozempic] 1 MG) SUBCUT SCH (10:00)
== END 2019-05-22 15:02 | disposition home or self-care (01) ==
LOC: 3N 16:05
PROVIDERS: ADMIT Internal Medicine; ATTEND Internal Medicine
DX: R10.31 Right lower quadrant pain (principal); E11.42 Type 2 diabetes mellitus with diabetic polyneuropathy; N20.0 Calculus of kidney; E66.01 Morbid (severe) obesity due to excess calories; M19.90 Unspecified osteoarthritis, unspecified site; M10.9 Gout, unspecified; M54.9 Dorsalgia, unspecified; E78.5 Hyperlipidemia, unspecified; Z79.84 Long term (current) use of oral hypoglycemic drugs; Z87.442 Personal history of urinary calculi; Z86.718 Personal history of other venous thrombosis and embolism; Z79.899 Other long term (current) drug therapy; Z86.711 Personal history of pulmonary embolism; Z95.828 Presence of other vascular implants and grafts; Z98.1 Arthrodesis status
CPT/HCPCS: 36415; 82962; 82150; 83690; 85025; 80076; 80048; 81001; 74177; J3490 ×4; S0119; J1650; J1170 ×2; J7030 ×2; G0378; G0379

== ENCOUNTER → 2019-10-22 | Outpatient (CLI) | payer MEDICAID ==
--- NOTE | 2019-10-22 14:11 | RADIOLOGY REPORT (SQ) ---
EXAM DESCRIPTION: CHEST PA/LATERAL COMPLETED DATE/TIME: 10/22/2019 1:33 pm REASON FOR STUDY: CHEST PAIN COMPARISON: 08/05/2016 EXAM PARAMETERS: NUMBER OF VIEWS: two views TECHNIQUE: Digital Frontal and Lateral radiographic views of the chest acquired. RADIATION DOSE: NA LIMITATIONS: none FINDINGS: LUNGS AND PLEURA: No opacities, masses or pneumothorax. No pleural effusion. MEDIASTINUM AND HILAR STRUCTURES: No masses or contour abnormalities. HEART AND VASCULAR STRUCTURES: Heart normal size. No evidence for failure. BONES: No acute findings. 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 OTHER: No other significant finding. IMPRESSION: NO SIGNIFICANT RADIOGRAPHIC FINDING IN THE CHEST. TECHNICAL DOCUMENTATION: JOB ID: [id number] [address] [employer]- All Rights Reserved Reading location - IP/workstation name: [email or web address]
== END ==
LOC: OD 13:02
PROVIDERS: ATTEND Specialist
DX: R07.1 Chest pain on breathing (principal)
CPT/HCPCS: 71046